=== PATIENT | female | born 1955 | race Caucasian/White ===

== ENCOUNTER 2018-01-01 00:17 | Emergency (ER) | payer BC ==
[~2018-01-01] VITALS: Ht 170.2 cm; Wt 95.3 kg
[2018-01-01] MEDS ORDERED: MOBIC15 MG PO (01:06)
[2018-01-01] MEDS ORDERED: SINGULAIR 10 MG10 M1 PO (01:06)
[2018-01-01 04:00] VITALS: BP 147/92
== END 2018-01-01 04:00 | disposition home or self-care (01) ==
LOC: M.ERS 00:17
DX: S70.262A Insect bite (nonvenomous), left hip, initial encounter (principal); M79.7 Fibromyalgia; Z88.1 Allergy status to other antibiotic agents; Z88.8 Allergy status to other drugs, medicaments and biological substances; Z91.041 Radiographic dye allergy status; Z88.2 Allergy status to sulfonamides; Z91.013 Allergy to seafood; W57.XXXA Bitten or stung by nonvenomous insect and other nonvenomous arthropods, initial encounter; Y93.89 Activity, other specified; Y92.89 Other specified places as the place of occurrence of the external cause; Y99.8 Other external cause status